=== PATIENT | female | born 1970 | race Caucasian/White ===

== ENCOUNTER 2016-08-28 11:41 | Emergency (ER) | payer BC, OTHER ==
[~2016-08-28 11:41] MED LIST: Albuterol Inhaler INH; BENA25CA2 PO; EXCETAB80 PO; FLUT11IN INH; LEVA500T PO; MOTR200T44 PO; MUCI600T34 PO; ROBISYP5 PO; SUDA30TA PO; TYLE325T5 PO; ZANT300T PO; [UNRECOGNIZED DRUG - OTHER] PO; [UNRECOGNIZED DRUG - REMARK] PO
[2016-08-28] MEDS ORDERED: predniSONE 20 MG TAB As Ordered ONE (12:32)
[2016-08-28] MEDS ORDERED: NAPROXEN 250 MG TAB As Ordered ONE (12:32)
--- NOTE | 2016-08-28 13:52 | EDDOCDS ---
Physician Documentation [facility] Name: Saumya Kim Age: 46 yrs Sex: Female : 1970 Arrival Date: 08/28/2016 Time: 11:41 Bed PR Private MD: Wilder Clark H. Disposition: 08/28/16 13:23 Discharged to Home/Self Care. 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 - Condition is Stable. - Discharge Instructions: Degenerative Disk Disease, Soft Tissue Injury of the Neck, [id number]. - Prescriptions for Mobic 7.5 mg Oral Tablet - take 1 tablet by ORAL route once daily take with food; 20 tablet. Percocet 5- 325 mg Oral Tablet - take 1 tablet by ORAL route every 6 hours As needed MDD: 4 tabs; 10 tablet. Zanaflex 4 mg Oral Tablet - take 1 tablet by ORAL route At bedtime As needed Will cause drowsiness, do not take while driving/operating heavy machinery.; 20 tablet. - Medication Reconciliation, Local Pharmacy Hours form. - Follow up: [facility]; When: Call to arrange an appointment; Reason: Further diagnostic work-up, Recheck today's complaints, Continuance of care. Follow up: Wilder Clark; When: 1 - 2 days; Reason: Recheck today's complaints, Continuance of care. Follow up: Emergency Department; Reason: Worsening of conditions. - Problem is new. - Symptoms have improved. Historical: - Allergies: No known drug Allergies; - Home Meds: 1. none - PMHx: none; - PSHx: none; - Social history: Smoking status: Patient states was never smoker of tobacco. No barriers to communication noted, The patient speaks fluent Kinyarwanda, Speaks appropriately for age. - : The pt / caregiver states he / she is not on anticoagulants. Home medication list is obtained from the patient. - Exposure Risk Screening:: None identified. 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 0 in. (152.40 cm) (R); 13:48 BP 145 / 85; Pulse 78; Resp 20; Temp 97.8(O); Pulse Ox 98% on R/A; dwg 11:44 Body Mass Index 39.06 (90.72 kg, 152.40 cm) dd6 MDM: 12:28 predniSONE 60 mg PO once; administer with food or milk ordered. ef1 12:28 Naproxen 500 mg PO once; administer with food or milk ordered. ef1 12:28 Ice Pack ordered. ef1 12:28 CT Spine,Cervical W/o Contrast Ordered. EDMS 13:14 [facility] Payment Agreement was scanned into [employer] and attached to record. jp5 13:15 Financial registration complete. jp5 Administered Medications: 12:34 Drug: predniSONE 60 mg [prednisone 20 mg tablet (3 tabs)] Route: PO; ms18 13:50 Follow up: Response: Pain is decreased dwg 12:34 Drug: Naproxen 500 mg [naproxen 250 mg tablet (2 tabs)] Route: PO; ms18 13:49 Follow up: Response: Pain is decreased dwg Signatures: Dispatcher MedHost EDMS Andrea Hall RN RN dwg Bryanna Ho, PA-C PA-C ef1 Nichole Boone RN RN hs1 Muna Villafuerte jp5 Corinne Reich RN ms18 The chart was reviewed and I authenticate all verbal orders and agree with the evaluation and treatment provided.Attachments: 13:14 [facility] Payment Agreement jp5 MTDD
--- NOTE | 2016-08-28 13:52 | EDDOCDS ---
Nurse's Notes [facility] Name: Saumya Kim Age: 46 yrs Sex: Female : 1970 Arrival Date: 08/28/2016 Time: 11:41 Bed PR2 / Private MD: Wilder Clark H. 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 Helped another worker pull down on a rope pulling door open. Patient reported that she had increased neck pain one hour after event and increasing pains since then. Patient states difficulty turning neck now. Risk Factors No acute neurological deficit is noted. Adult Sepsis Screening: The patient does not have new or worsening altered mentation. Patient's respiratory rate is less than 22. Systolic blood pressure is greater than 100. Patient has a qSOFA score of 0- Negative Sepsis Screen. Suicide/Homicide risk assessment- the patient denies having any suicidal and/or homicidal ideations and does not present with any other emotional, behavioral or mental health complaints. 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 Transition of care: patient was not received from another setting of care. 11:49 Acuity: JANELLE Level 4 hs1 11:49 Method Of Arrival: Walkin/Carried/Asstd hs1 Triage Assessment: 11:51 General: Appears in no apparent distress, Behavior is appropriate for age, cooperative. hs1 Pain: Location: back of neck Pain currently is 6 out of 10 on a pain scale. Quality of pain is described as burning. Pt Declines HIV testing. Musculoskeletal: Reports pain in back of neck. 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 none - PMHx: none; - PSHx: none; - Social history: Smoking status: Patient states was never smoker of tobacco. No barriers to communication noted, The patient speaks fluent Yoruba, Speaks appropriately for age. - : The pt / caregiver states he / she is not on anticoagulants. Home medication list is obtained from the patient. - Exposure Risk Screening:: None identified. Screenin:53 Screening information is obtained from the patient. Fall risk: No risks identified. hs1 Assistance ADL's: requires no assistance with activities of daily living. Abuse/DV Screen: The patient / caregiver reports he/she is: not in a situation that causes fear, pain or injury. Nutritional screening: No deficits noted. Advance Directives: There is no active DNR order. home support is adequate. Assessment: 13:47 General: Appears in no apparent distress, Behavior is cooperative, pleasant. Pain: dwg Location: base of the skull. Neurological: Level of Consciousness is awake, alert, Oriented to person, place, time. Neurological: Cna are equal bilaterally Moves all extremities. Weakness Gait is steady, Speech is normal, Facial symmetry appears normal. Respiratory: Airway is patent Respiratory effort is even, unlabored, Respiratory pattern is regular, symmetrical. Vital Signs: 11:44 BP 152 / 77; Pulse 85; Resp 18 S; Temp 97.0(T); Pulse Ox 100% on R/A; Weight 90.72 kg dd6 (R); Height 5 ft. 0 in. (152.40 cm) (R); 13:48 BP 145 / 85; Pulse 78; Resp 20; Temp 97.8(O); Pulse Ox 98% on R/A; dwg 11:44 Body Mass Index 39.06 (90.72 kg, 152.40 cm) dd6 Vitals: 11:44 Log In Time: August 28, 2016 at 11:42. dd6 ED Course: 11:43 Patient visited by Guido Viera PCA. dd6 11:43 Wilder Clark is Private Physician. dd6 11:43 Patient moved to Waiting dd6 11:44 Patient moved to Pre RCE dd6 11:51 Triage Initiated hs1 12:19 Bryanna Ho PA-C is PHCP. ef1 12:19 Rufina Bañuelos MD is Attending Physician. ef1 12:19 Patient visited by Bryanna Ho PA-C. ef1 12:19 Patient moved to Triage 2 ms18 12:34 Patient moved to TR4 ms18 13:00 Patient visited by Bryanna Ho PA-C. ef1 13:14 [facility] Payment Agreement was scanned into [employer] and attached to record. jp5 13:21 Patient visited by Bryanna Ho PA-C. ef1 13:23 Orthopaedics, [facility] is Referral Physician. ef1 13:23 Wilder Clark is Referral Physician. ef1 13:27 Patient moved to ms18 13:49 Patient visited by Andrea Hall, RN. dwg Administered Medications: 12:34 Drug: predniSONE 60 mg [prednisone 20 mg tablet (3 tabs)] Route: PO; ms18 13:50 Follow up: Response: Pain is decreased dwg 12:34 Drug: Naproxen 500 mg [naproxen 250 mg tablet (2 tabs)] Route: PO; ms18 13:49 Follow up: Response: Pain is decreased dwg Order Results: There are currently no results for this order. Outcome: 13:23 Discharge ordered by Provider. ef1 13:51 Patient left the ED. dwg Signatures: Andrea Hall, RN RN dwg Guido Viera, REGULATOR OPERATOR REGULATOR OPERATOR dd6 Bryanna Ho PA-C PA-C ef1 Nichole Boone RN RN hs1 Corinne Reich RN RN ms18 Muna Villafuerte 5 MTDD
--- NOTE | 2016-08-28 16:27 | REP ---
CT CERVICAL SPINE WITHOUT CONTRAST: HISTORY: Trauma. There is no acute fracture or subluxation. Disc bulges with associated osteophyte formation are present at the C5-6 and C6-7 levels. There is minimal narrowing of the spinal canal. Uncinate process hypertrophy is present at the C5-6 and C6-7 levels. This produces minimal narrowing of the neural foramina. The C5-6 and C6-7 intervertebral discs are decreased in height consistent with disc degeneration. IMPRESSION: 1. There is no acute fracture or subluxation. 2. There is cervical spondylosis at the C5-6 and C6-7 levels. Signed by Ravindra Gallo MD 08/28/2016 04:29 P
--- NOTE | 2016-08-30 14:52 | EDDOCDS ---
Physician Documentation [facility] Name: Saumya Kim Age: 46 yrs Sex: Female : 1970 Arrival Date: 08/28/2016 Time: 11:41 Bed PR Private MD: Wilder Clark H. Disposition: 08/28/16 13:23 Discharged to Home/Self Care. 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 - Condition is Stable. - Discharge Instructions: Degenerative Disk Disease, Soft Tissue Injury of the Neck, [id number]. - Prescriptions for Mobic 7.5 mg Oral Tablet - take 1 tablet by ORAL route once daily take with food; 20 tablet. Percocet 5- 325 mg Oral Tablet - take 1 tablet by ORAL route every 6 hours As needed MDD: 4 tabs; 10 tablet. Zanaflex 4 mg Oral Tablet - take 1 tablet by ORAL route At bedtime As needed Will cause drowsiness, do not take while driving/operating heavy machinery.; 20 tablet. - Medication Reconciliation, Local Pharmacy Hours form. - Follow up: [facility]; When: Call to arrange an appointment; Reason: Further diagnostic work-up, Recheck today's complaints, Continuance of care. Follow up: Wilder Clark; When: 1 - 2 days; Reason: Recheck today's complaints, Continuance of care. Follow up: Emergency Department; Reason: Worsening of conditions. - Problem is new. - Symptoms have improved. Historical: - Allergies: No known drug Allergies; - Home Meds: 1. none - PMHx: none; - PSHx: none; - Social history: Smoking status: Patient states was never smoker of tobacco. No barriers to communication noted, The patient speaks fluent Malawian, Speaks appropriately for age. - : The pt / caregiver states he / she is not on anticoagulants. Home medication list is obtained from the patient. - Exposure Risk Screening:: None identified. 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 0 in. (152.40 cm) (R); 13:48 BP 145 / 85; Pulse 78; Resp 20; Temp 97.8(O); Pulse Ox 98% on R/A; dwg 11:44 Body Mass Index 39.06 (90.72 kg, 152.40 cm) dd6 MDM: 12:28 predniSONE 60 mg PO once; administer with food or milk ordered. ef1 12:28 Naproxen 500 mg PO once; administer with food or milk ordered. ef1 12:28 Ice Pack ordered. ef1 12:28 CT Spine,Cervical W/o Contrast Ordered. EDME 13:14 [facility] Payment Agreement was scanned into [employer] and attached to record. jp5 13:15 Financial registration complete. jp5 14:50 T-Sheet-- Draft Copy was scanned into [employer] and attached to record. gb 14:50 Radiology Report was scanned into [employer] and attached to record. gb Administered Medications: 12:34 Drug: predniSONE 60 mg [prednisone 20 mg tablet (3 tabs)] Route: PO; ms18 13:50 Follow up: Response: Pain is decreased dwg 12:34 Drug: Naproxen 500 mg [naproxen 250 mg tablet (2 tabs)] Route: PO; ms18 13:49 Follow up: Response: Pain is decreased dw Signatures: Dispatcher MedHost EDAndrea Vizcarra, RN RN dwg Zuly Flanagan, Reg Reg gb Bryanna Ho, PA-C PA-C ef1 Nichole Boone RN RN 1 Muna Villafuerte jp5 Corinne Reich RN ms18 The chart was reviewed and I authenticate all verbal orders and agree with the evaluation and treatment provided.Attachments: 13:14 [facility] Payment Agreement jp5 14:50 T-Sheet-- Draft Copy gb Chart Complete MTDD
--- NOTE | 2016-08-30 14:52 | EDDOCDS ---
Physician Documentation [facility] Name: Saumya Kim Age: 46 yrs Sex: Female : 1970 Arrival Date: 08/28/2016 Time: 11:41 Bed PR Private MD: Wilder Clark H. Disposition: 08/28/16 13:23 Discharged to Home/Self Care. 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 - Condition is Stable. - Discharge Instructions: Degenerative Disk Disease, Soft Tissue Injury of the Neck, [id number]. - Prescriptions for Mobic 7.5 mg Oral Tablet - take 1 tablet by ORAL route once daily take with food; 20 tablet. Percocet 5- 325 mg Oral Tablet - take 1 tablet by ORAL route every 6 hours As needed MDD: 4 tabs; 10 tablet. Zanaflex 4 mg Oral Tablet - take 1 tablet by ORAL route At bedtime As needed Will cause drowsiness, do not take while driving/operating heavy machinery.; 20 tablet. - Medication Reconciliation, Local Pharmacy Hours form. - Follow up: [facility]; When: Call to arrange an appointment; Reason: Further diagnostic work-up, Recheck today's complaints, Continuance of care. Follow up: Widler Clark; When: 1 - 2 days; Reason: Recheck today's complaints, Continuance of care. Follow up: Emergency Department; Reason: Worsening of conditions. - Problem is new. - Symptoms have improved. Historical: - Allergies: No known drug Allergies; - Home Meds: 1. none - PMHx: none; - PSHx: none; - Social history: Smoking status: Patient states was never smoker of tobacco. No barriers to communication noted, The patient speaks fluent Canadian, Speaks appropriately for age. - : The pt / caregiver states he / she is not on anticoagulants. Home medication list is obtained from the patient. - Exposure Risk Screening:: None identified. 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 0 in. (152.40 cm) (R); 13:48 BP 145 / 85; Pulse 78; Resp 20; Temp 97.8(O); Pulse Ox 98% on R/A; dwg 11:44 Body Mass Index 39.06 (90.72 kg, 152.40 cm) dd6 MDM: 12:28 predniSONE 60 mg PO once; administer with food or milk ordered. ef1 12:28 Naproxen 500 mg PO once; administer with food or milk ordered. ef1 12:28 Ice Pack ordered. ef1 12:28 CT Spine,Cervical W/o Contrast Ordered. EDNV 13:14 [facility] Payment Agreement was scanned into [employer] and attached to record. jp5 13:15 Financial registration complete. jp5 14:50 T-Sheet-- Draft Copy was scanned into [employer] and attached to record. gb 14:50 Radiology Report was scanned into [employer] and attached to record. gb Administered Medications: 12:34 Drug: predniSONE 60 mg [prednisone 20 mg tablet (3 tabs)] Route: PO; ms18 13:50 Follow up: Response: Pain is decreased dwg 12:34 Drug: Naproxen 500 mg [naproxen 250 mg tablet (2 tabs)] Route: PO; ms18 13:49 Follow up: Response: Pain is decreased dw Signatures: Dispatcher MedHost EDAndrea Vizcarra, RN RN dwg Zuly Flanagan, Reg Reg gb Bryanna Ho, PA-C PA-C ef1 Nichole Boone RN RN 1 Muna Villafuerte jp5 Corinne Reich RN ms18 The chart was reviewed and I authenticate all verbal orders and agree with the evaluation and treatment provided.Attachments: 13:14 [facility] Payment Agreement jp5 14:50 T-Sheet-- Draft Copy gb Chart Complete MTDD
--- NOTE | 2016-08-30 14:52 | EDDOCDS ---
Nurse's Notes [facility] Name: Saumya Kim Age: 46 yrs Sex: Female : 1970 Arrival Date: 08/28/2016 Time: 11:41 Bed PR2 / Private MD: Wilder Clark H. 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 Helped another worker pull down on a rope pulling door open. Patient reported that she had increased neck pain one hour after event and increasing pains since then. Patient states difficulty turning neck now. Risk Factors No acute neurological deficit is noted. Adult Sepsis Screening: The patient does not have new or worsening altered mentation. Patient's respiratory rate is less than 22. Systolic blood pressure is greater than 100. Patient has a qSOFA score of 0- Negative Sepsis Screen. Suicide/Homicide risk assessment- the patient denies having any suicidal and/or homicidal ideations and does not present with any other emotional, behavioral or mental health complaints. 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 Transition of care: patient was not received from another setting of care. 11:49 Acuity: JANELLE Level 4 hs1 11:49 Method Of Arrival: Walkin/Carried/Asstd hs1 Triage Assessment: 11:51 General: Appears in no apparent distress, Behavior is appropriate for age, cooperative. hs1 Pain: Location: back of neck Pain currently is 6 out of 10 on a pain scale. Quality of pain is described as burning. Pt Declines HIV testing. Musculoskeletal: Reports pain in back of neck. 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 none - PMHx: none; - PSHx: none; - Social history: Smoking status: Patient states was never smoker of tobacco. No barriers to communication noted, The patient speaks fluent Italian, Speaks appropriately for age. - : The pt / caregiver states he / she is not on anticoagulants. Home medication list is obtained from the patient. - Exposure Risk Screening:: None identified. Screenin:53 Screening information is obtained from the patient. Fall risk: No risks identified. hs1 Assistance ADL's: requires no assistance with activities of daily living. Abuse/DV Screen: The patient / caregiver reports he/she is: not in a situation that causes fear, pain or injury. Nutritional screening: No deficits noted. Advance Directives: There is no active DNR order. home support is adequate. Assessment: 13:47 General: Appears in no apparent distress, Behavior is cooperative, pleasant. Pain: dwg Location: base of the skull. Neurological: Level of Consciousness is awake, alert, Oriented to person, place, time. Neurological: Abstract Clerk are equal bilaterally Moves all extremities. Weakness Gait is steady, Speech is normal, Facial symmetry appears normal. Respiratory: Airway is patent Respiratory effort is even, unlabored, Respiratory pattern is regular, symmetrical. Vital Signs: 11:44 BP 152 / 77; Pulse 85; Resp 18 S; Temp 97.0(T); Pulse Ox 100% on R/A; Weight 90.72 kg dd6 (R); Height 5 ft. 0 in. (152.40 cm) (R); 13:48 BP 145 / 85; Pulse 78; Resp 20; Temp 97.8(O); Pulse Ox 98% on R/A; dwg 11:44 Body Mass Index 39.06 (90.72 kg, 152.40 cm) dd6 Vitals: 11:44 Log In Time: August 28, 2016 at 11:42. dd6 ED Course: 11:43 Patient visited by Guido Viera PCA. dd6 11:43 Wilder Clark is Private Physician. dd6 11:43 Patient moved to Waiting dd6 11:44 Patient moved to Pre RCE dd6 11:51 Triage Initiated hs1 12:19 Bryanna Ho PA-C is PHCP. ef1 12:19 Rufina Bañuelos MD is Attending Physician. ef1 12:19 Patient visited by Bryanna Ho PA-C. ef1 12:19 Patient moved to Triage 2 ms18 12:34 Patient moved to TR4 ms18 13:00 Patient visited by Bryanna Ho PA-C. ef1 13:14 [facility] Payment Agreement was scanned into [employer] and attached to record. jp5 13:21 Patient visited by Bryanna Ho PA-C. ef1 13:[facility]. ef1 13:23 Wilder Clark is Referral Physician. ef1 13:27 Patient moved to PR ms18 13:49 Patient visited by Andrae Hall RN. dwg 14:50 T-Sheet-- Draft Copy was scanned into [employer] and attached to record. gb 14:50 Radiology Report was scanned into [employer] and attached to record. gb 17:15 CT Spine,Cervical W/o Contrast Returned. EDMS Administered Medications: 12:34 Drug: predniSONE 60 mg [prednisone 20 mg tablet (3 tabs)] Route: PO; ms18 13:50 Follow up: Response: Pain is decreased dwg 12:34 Drug: Naproxen 500 mg [naproxen 250 mg tablet (2 tabs)] Route: PO; ms18 13:49 Follow up: Response: Pain is decreased dwg Order Results: Radiology Order: CT Spine,Cervical W/o Contrast Test: CT Spine,Cervical W/o Contrast REASON FOR EXAMINATION: Trauma; CT CERVICAL SPINE WITHOUT CONTRAST:; ; HISTORY: Trauma.; ; There is no acute fracture or subluxation. Disc bulges with associated osteophyte; formation are present at the C5-6 and C6-7 levels. There is minimal narrowing of; the spinal canal. Uncinate process hypertrophy is present at the C5-6 and C6-7; levels. This produces minimal narrowing of the neural foramina. The C5-6 and C6-7; intervertebral discs are decreased in height consistent with disc degeneration.; ; IMPRESSION:; ; 1. There is no acute fracture or subluxation.; ; 2. There is cervical spondylosis at the C5-6 and C6-7 levels.; ; ; Signed by; Ravindra Gallo MD 08/28/2016 04:29 P; Outcome: 13:23 Discharge ordered by Provider. ef1 13:51 Patient left the ED. dwg Signatures: Dispatcher [employer] EDMS Andrea Hall, RN RN dwg Zuly Flanagan, Reg Reg gb Guido Viera, SCOUT SNIPER SCOUT SNIPER dd6 Bryanna Ho PA-C PA-C ef1 Nichole Boone RN RN hs1 Corinne Reich RN RN ms18 Muna Villafuerte jp5 Chart Complete MTDD
== END 2016-08-28 13:51 | disposition home or self-care (01) ==
LOC: M ED 11:41
DX: M50.30 Other cervical disc degeneration, unspecified cervical region (principal)

== ENCOUNTER → 2017-02-28 | Outpatient (CLI) | payer BC ==
[~2017-02-28] MED LIST changes: +AMOX500T2 PO; +FLUC10TA PO; +LEVA1TAB2 PO; -LEVA500T PO; -MUCI600T34 PO; +MUCI600T37 PO; +NORCOTAB PO
[2017-02-28 14:58] LABS: ALBUMIN 3.6 GM/DL (3.2-5.2); ALBUMIN/GLOBULIN RATIO 1.03 (1.00-1.93); ALKALINE PHOSPHATASE 79 U/L (45-117); ALT/SGPT 24 U/L (12-78); ANION GAP 6 MEQ/L (8-16); AST/SGOT 17 U/L (15-37); BILIRUBIN,TOTAL 0.5 MG/DL (0.2-1.0); BLOOD UREA NITROGEN 12 MG/DL (7-18); CALCIUM LEVEL 8.8 MG/DL (8.5-10.1); CARBON DIOXIDE LEVEL 27 MEQ/L (21-32); CHLORIDE LEVEL 106 MEQ/L (98-107); CREATININE FOR GFR 0.63 MG/DL (0.55-1.02); GLOMERULAR FILTRATION RATE > 60.0 (>58); GLUCOSE, FASTING 100 MG/DL (70-105); POTASSIUM SERUM 4.3 MEQ/L (3.5-5.1); SODIUM LEVEL 139 MEQ/L (136-145); TOTAL PROTEIN 7.1 GM/DL (6.4-8.2)
--- NOTE | 2017-03-01 06:33 | REP ---
Clinical: Left lower quadrant pelvic pain . Technique: Transabdominal pelvic ultrasound followed by transvaginal examination for better evaluation of the endometrium and adnexa with color Doppler evaluation of the ovaries. Findings: Bladder is unremarkable and measures 4.0 x 3.3 x 2.0 cm . Normal anteverted uterus measures 9.7 x 4.0 x 4.3 cm . The endometrial complex measures 3.9 mm thickness. 12 mm Nabothian cyst in the lower uterine segment noted. Bilateral ovaries are normal in appearance and vascularity without evidence for torsion. Right ovary measures 2.0 x 2.3 x 2.2 cm ; R I = 0.52 . Left ovary measures 2.0 x 1.3 x 2.5 cm ; R I = 0.43 . No pelvic fluid or adnexal mass lesion . Impression: 1. 12 mm Nabothian cyst. Otherwise normal pelvic ultrasound. No torsion. Signed by Mitchell Marques MD 03/01/2017 04:55 A
== END ==
LOC: M RAD 13:15
PROVIDERS: ATTEND Nurse Practitioner Women's Health
DX: E66.9 Obesity, unspecified (principal); Z68.39 Body mass index [BMI] 39.0-39.9, adult; R10.32 Left lower quadrant pain

== ENCOUNTER → 2017-06-11 | Outpatient (CLI) | payer BC ==
--- NOTE | 2017-06-11 15:46 | REP ---
ABDOMEN: Two KUB films of the abdomen and pelvis are performed. There is no evidence of bowel obstruction. No dilated small bowel loops are seen. There appear to be a few phleboliths in the pelvis. There are mild degenerative changes of the spine and hips. IMPRESSION: Unremarkable KUB. Signed by Andrea Aviles MD 06/12/2017 04:30 P
[2017-06-11 18:25] LABS: MEAN CORPUSCULAR HEMOGLOBIN 32.8 pg (27.0-33.0); MEAN CORPUSCULAR HGB CONC 33.3 g/dl (32.0-36.5); MEAN CORPUSCULAR VOLUME 98.4 fl (80.0-96.0); WHITE BLOOD COUNT 14.1 10^3/uL (4.0-10.0)
[2017-06-11 18:27] LABS: CBCMD ORDERED? YES (YES)
[2017-06-11 18:37] LABS: ALBUMIN 3.9 GM/DL (3.2-5.2); ALBUMIN/GLOBULIN RATIO 1.08 (1.00-1.93); ALKALINE PHOSPHATASE 106 U/L (45-117); ALT/SGPT 29 U/L (12-78); ANION GAP 8 MEQ/L (8-16); AST/SGOT 10 U/L (15-37); BILIRUBIN,TOTAL 0.6 MG/DL (0.2-1.0); BLOOD UREA NITROGEN 12 MG/DL (7-18); CARBON DIOXIDE LEVEL 31 MEQ/L (21-32); CHLORIDE LEVEL 100 MEQ/L (98-107); CREATININE FOR GFR 0.74 MG/DL (0.55-1.02); GLOMERULAR FILTRATION RATE > 60.0 (>58); GLUCOSE, FASTING 99 MG/DL (70-105); POTASSIUM SERUM 3.8 MEQ/L (3.5-5.1); SODIUM LEVEL 139 MEQ/L (136-145); TOTAL PROTEIN 7.5 GM/DL (6.4-8.2)
== END ==
LOC: M WUC 13:52
PROVIDERS: ATTEND Physician Assistant
DX: R10.84 Generalized abdominal pain (principal)

== ENCOUNTER → 2017-06-11 | Outpatient (CLI) | payer BC ==
[~2017-06-11] MED LIST changes: +GASTROGRAFIN SOLUTION 30ML (Q9963) As Ordered ONE; +ISOVUE-370 76% 100ML VIAL (Q9967) As Ordered ONE
--- NOTE | 2017-06-11 17:53 | REP ---
CT ABDOMEN PELVIS WITH IV CONTRAST: 06/11/2017. Clinical history: Generalized abdominal pain. Comparison: X-ray 06/11/2017. Technique: Oral Gastrografin mixture 10 ml as into 190 ml flavored water for two doses per our bowel contrast protocol. Bolus of 100 ml as Isovue 370 given scanning through the abdomen and pelvis. Coronal and sagittal reconstructions provided. Findings: CT abdomen: Lung bases are clear. Heart not enlarged as no pericardial thickening or effusion. There are not enlarged and there is no focal hepatic mass, biliary dilatation nor adjacent ascites. Gallbladder shows no calcified stone or mass. Pancreas, spleen, adrenal glands and kidneys were all normal. No hiatal hernia. Stomach filled with some retained oral contrast contrast seen throughout the small bowel loops into the colon to the level of the distal transverse segment. Small bowel loops contrast or fluid-filled but not abnormally dilated. No anisha colonic inflammatory changes in the right transverse and left colon, flexures. No mesenteric edema. The aorta is without aneurysm and no periaortic or retroperitoneal pathologic sized lymphadenopathy. Lung window review for all CT slices abdomen pelvis show no perforation, abscess or free air. Bone windows show lumbar and lower thoracic spine, posterior elements and visualized ribs intact. CT pelvis bony hips with minor degenerative change. The pelvis, sacrum, SI joints, symphysis pubis and lumbosacral junction with minor degenerative change and no destructive lesion or fracture. Kidneys show no hydronephrosis, hydroureter, renal or ureteral stone. Bladder only partially filled without wall thickening, stone or mass. Uterus anteverted, not enlarged. No adnexal mass. There are inflammatory changes about the cecum and appendix. The appendix is dilated. Diameters up to 12 mm do not see an appendicolith. There is no perforation or abscess. Pelvic lymphadenopathy or ascites. No ventral or inguinal hernia nor pathologic sized inguinal adenopathy. Impression: 1. There is a dilatation of the appendix with inflammatory changes surrounding it and the appendix up to 13 mm. This is consistent with early appendicitis. I do not see perforation or abscess at this time. No appendicolith. 2. Small bowel loops and colon without any acute findings otherwise. There is no perforation, free air or other significant finding. Solid organs upper abdomen, gallbladder and stomach all intact. Signed by Yonis Colon MD 06/11/2017 05:44 P
== END ==
LOC: M RAD 15:12
PROVIDERS: ATTEND Physician Assistant
DX: R10.84 Generalized abdominal pain (principal)
CPT/HCPCS: 74177; Q9963; Q9967

== ENCOUNTER → 2017-09-20 | Outpatient (REF) | payer BC | LOC: M SFHCPLAZ 10:09 | DX: Z00.00 Encounter for general adult medical examination without abnormal findings (principal); R53.83 Other fatigue; Z13.220 Encounter for screening for lipoid disorders; Z53.9 Procedure and treatment not carried out, unspecified reason ==

== ENCOUNTER → 2017-10-04 | Outpatient (REF) | payer BC ==
[2017-10-04 12:15] LABS: BASO # 0.1 10^3/uL (0.0-0.2); BASO % 0.8 % (0.0-1.0); EOS # 0.2 10^3/uL (0.0-0.50); EOS % 3.6 % (0.0-3.0); HEMATOCRIT 43.1 % (36.0-47.0); HEMOGLOBIN 14.4 g/dl (12.0-16.0); IMMATURE GRANULOCYTE % 0.2 % (0-3.0); LYMPH # 2.5 10^3/uL (1.5-4.5); LYMPH % 38.8 % (24.0-44.0); MEAN CORPUSCULAR HEMOGLOBIN 32.7 pg (27.0-33.0); MEAN CORPUSCULAR HGB CONC 33.4 g/dl (32.0-36.5); MEAN CORPUSCULAR VOLUME 97.7 fl (80.0-96.0); MONO # 0.6 10^3/uL (0.0-0.8); MONO % 9.7 % (0.0-5.0); NEUTROPHILS % 46.9 % (36.0-66.0); PLATELET COUNT, AUTOMATED 204 10^3/uL (150-450); RED BLOOD COUNT 4.41 10^6/uL (4.00-5.40); RED CELL DISTRIBUTION WIDTH 12.1 % (11.5-14.5); WHITE BLOOD COUNT 6.3 10^3/uL (4.0-10.0)
[2017-10-04 12:38] LABS: ANION GAP 8 MEQ/L (8-16); BLOOD UREA NITROGEN 13 MG/DL (7-18); CALCIUM LEVEL 8.6 MG/DL (8.5-10.1); CARBON DIOXIDE LEVEL 30 MEQ/L (21-32); CHLORIDE LEVEL 106 MEQ/L (98-107); CHOLESTEROL LEVEL 255 MG/DL (<200); CHOLESTEROL RISK RATIO 3.187 (<5); CREATININE FOR GFR 0.65 MG/DL (0.55-1.30); FREE T4 1.01 NG/DL (0.76-1.46); GLOMERULAR FILTRATION RATE > 60.0 (>58); GLUCOSE, FASTING 104 MG/DL (70-100); HDL CHOLESTEROL 80 MG/DL (>40); LDL CHOLESTEROL 138.6 MG/DL (<100); NON-HDL-C 175 MG/DL; POTASSIUM SERUM 4.1 MEQ/L (3.5-5.1); SODIUM LEVEL 144 MEQ/L (136-145); TRIGLYCERIDES LEVEL 182 MG/DL (<150)
== END ==
LOC: M SFHCPLAZ 07:46
DX: Z00.00 Encounter for general adult medical examination without abnormal findings (principal); R53.83 Other fatigue; Z13.220 Encounter for screening for lipoid disorders
CPT/HCPCS: 84443

== ENCOUNTER 2017-11-01 06:46 | Day surgery (SDC) | payer BC ==
[2017-11-01] MEDS ORDERED: LIDOCAINE 1% MDV 20ML VIAL SQ (07:00)
[2017-11-01 07:49] LABS: CONTROL LINE UCG INT CTR LINE PRESENT; URINE PREG TEST NEGATIVE (NEGATIVE)
[2017-11-01] MEDS: LR 1,000 ML IV (07:50)
[2017-11-01] MEDS ORDERED: MIDAZOLAM INJ 2 MG/2 ML VIAL (J2250) As Ordered (07:54)
[2017-11-01] MEDS ORDERED: fentaNYL 100 MCG/2 ML INJECTION (J3010) As Ordered ×2 (07:54→09:06)
[2017-11-01] MEDS ORDERED: ROCURONIUM BROMIDE 50 MG/5 ML VIAL As Ordered (07:56)
[2017-11-01] MEDS: CEFAZOLIN SOD 1 GM in APPROPRIATE DILUENT 1 EA IV (08:48)
[2017-11-01] MEDS ORDERED: LIDOCAINE 2% INJ 100 MG/5 ML SDV (FOR ANES.) As Ordered (08:59)
[2017-11-01] MEDS ORDERED: KETOROLAC 60 MG/2 ML VIAL (J1885) As Ordered (08:59)
[2017-11-01] MEDS ORDERED: dexameTHASONE 4 MG/ML 1ML VIAL (J1100) As Ordered ×2 (08:59)
[2017-11-01] MEDS ORDERED: ONDANSETRON 4MG/2ML VIAL (J2405) As Ordered (08:59)
[2017-11-01] MEDS ORDERED: PROPOFOL 200 MG/20 ML VIAL As Ordered (08:59)
[2017-11-01] MEDS ORDERED: NEOSTIGMINE 10 MG/10 ML VIAL (J2710) As Ordered (09:15)
[2017-11-01] MEDS ORDERED: GLYCOPYRROLATE INJ 0.2 MG/ML 2 ML VIAL As Ordered (09:15)
[2017-11-01] MEDS: LIDOCAINE W/EPINEPHRINE 1% 20ML VIAL As Ordered (09:27)
[2017-11-01] MEDS: BUPIVACAINE HCL 0.25% 10 ML VIAL As Ordered (09:28)
[2017-11-01] MEDS ORDERED: ONDANSETRON 4MG/2ML VIAL (J2405) IV ×2 (09:45→10:00)
[2017-11-01] MEDS ORDERED: LR 1,000 ML IV ×2 (09:45→10:00)
[2017-11-01] MEDS ORDERED: fentaNYL 100 MCG/2 ML INJECTION (J3010) IV (09:45)
[2017-11-01] MEDS ORDERED: NORCO, ANEXSIA 5/325MG TABLET (HYDROcodone/ACETAMINOPHEN) PO (10:00)
[2017-11-01] MEDS: PERCOCET 5MG/325MG TAB PO ×2 (10:00→12:24)
[2017-11-01] MEDS ORDERED: PERCOCET 5MG/325MG TAB As Ordered (12:23)
[2017-11-01] MEDS ORDERED: KETOROLAC 30 MG/ML VIAL (J1885) IV (15:00)
== END 2017-11-01 13:25 | disposition home or self-care (01) ==
LOC: M SDC 06:46
DX: K43.2 Incisional hernia without obstruction or gangrene (principal)
CPT/HCPCS: 49560

== ENCOUNTER → 2017-11-12 | Outpatient (CLI) | payer BC | LOC: M RAD 07:39 | DX: R10.11 Right upper quadrant pain (principal) | CPT/HCPCS: 76705 ==

== ENCOUNTER → 2018-01-29 | Outpatient (CLI) | payer BC | LOC: M SLEEP 20:06 | DX: G47.33 Obstructive sleep apnea (adult) (pediatric) (principal) | CPT/HCPCS: 95810 ==

== ENCOUNTER → 2018-02-03 | Outpatient (CLI) | payer BC | LOC: M RAD 12:48 | DX: R06.02 Shortness of breath (principal) | CPT/HCPCS: 71046 ==

== ENCOUNTER → 2018-02-26 | Outpatient (CLI) | payer BC | LOC: M SLEEP 19:42 | DX: G47.33 Obstructive sleep apnea (adult) (pediatric) (principal) | CPT/HCPCS: 95811 ==

== ENCOUNTER 2018-05-27 09:16 | Day surgery (SDC) | payer BC ==
[~2018-05-27 09:16] MED LIST changes: -AMOX500T2 PO; -Albuterol Inhaler INH; -BENA25CA2 PO; -EXCETAB80 PO; -FLUC10TA PO; -FLUT11IN INH; -GASTROGRAFIN SOLUTION 30ML (Q9963) As Ordered ONE; -ISOVUE-370 76% 100ML VIAL (Q9967) As Ordered ONE; -LEVA1TAB2 PO; -MOTR200T44 PO; -MUCI600T37 PO; -NORCOTAB PO; +NS 1,000 ML IV; -ROBISYP5 PO; -SUDA30TA PO; -TYLE325T5 PO; -ZANT300T PO; -[UNRECOGNIZED DRUG - OTHER] PO; -[UNRECOGNIZED DRUG - REMARK] PO
[2018-05-27] MEDS ORDERED: PROPOFOL 200 MG/20 ML VIAL As Ordered ×2 (10:53→11:00)
[2018-05-27] MEDS ORDERED: LIDOCAINE 2% INJ 100 MG/5 ML SDV (FOR ANES.) As Ordered ×2 (10:53→11:00)
== END 2018-05-27 11:57 | disposition home or self-care (01) ==
LOC: M OPP 09:16
DX: R19.7 Diarrhea, unspecified (principal); K64.8 Other hemorrhoids; G47.30 Sleep apnea, unspecified; K21.9 Gastro-esophageal reflux disease without esophagitis; Z80.3 Family history of malignant neoplasm of breast; Z83.3 Family history of diabetes mellitus; Z83.49 Family history of other endocrine, nutritional and metabolic diseases
CPT/HCPCS: 45378

== ENCOUNTER → 2018-09-24 | Outpatient (CLI) | payer BC ==
[~2018-09-24] MED LIST changes: +AMOX500T2 PO; +Albuterol Inhaler INH; +BENA25CA2 PO; +EXCETAB80 PO; +FLUC10TA PO; +FLUT11IN INH; +LEVA1TAB2 PO; +MOTR200T44 PO; +MUCI600T37 PO; +NO MEDICATIONS; +NORCOTAB PO; -NS 1,000 ML IV; +ROBISYP5 PO; +SUDA30TA PO; +TYLE325T5 PO; +ZANT300T9 PO; +[UNRECOGNIZED DRUG - OTHER] PO; +[UNRECOGNIZED DRUG - REMARK] PO
[2018-09-24 12:45] LABS: BILIRUBIN,DIRECT 0.1 MG/DL (0.0-0.2); BILIRUBIN,TOTAL 0.5 MG/DL (0.2-1.0)
[2018-09-24 12:46] LABS: ALBUMIN 3.8 GM/DL (3.2-5.2); TOTAL PROTEIN 6.9 GM/DL (6.4-8.2)
== END ==
LOC: M LAB 11:16
PROVIDERS: ATTEND Internal Medicine Gastroenterology
DX: R10.13 Epigastric pain (principal)

== ENCOUNTER → 2018-10-15 | Outpatient (CLI) | payer BC ==
[~2018-10-15] MED LIST changes: +DICY10CA13 PO
--- NOTE | 2018-10-15 11:21 | REP ---
Gastric emptying nuclear scintigraphy: History: Epigastric pain. Technique: 1.04 mCi of technetium-99m sulfur colloid was ingested in two scrambled eggs and 6 ounces of water and sequential anterior and posterior images are acquired for an 89-minute imaging observation period. Regions of interest are drawn around the stomach to plot gastric emptying. Scintigraphic findings: Expected T1/2 is 90 minutes. 80 % emptying is observed in this patient during the 89-minute imaging observation period, for a calculated T1/2 in this patient of 46 minutes. Impression: Normal gastric emptying. Electronically Signed by Thad Nolasco MD 10/15/2018 11:12 A
== END ==
LOC: M RAD 07:27
PROVIDERS: ATTEND Internal Medicine Gastroenterology
DX: R10.9 Unspecified abdominal pain (principal)
CPT/HCPCS: 78264; A9541

== ENCOUNTER 2018-10-21 12:27 | Day surgery (SDC) | payer BC ==
[~2018-10-21] VITALS: Ht 152.4 cm; Wt 92.9 kg
[2018-10-21] MEDS ORDERED: NS 1,000 ML IV ONE (13:45)
[2018-10-21] MEDS ORDERED: LIDOCAINE 2% INJ 100 MG/5 ML SDV (FOR ANES.) As Ordered ONE (14:44)
[2018-10-21] MEDS ORDERED: PROPOFOL 200 MG/20 ML VIAL As Ordered ONE (14:44)
[2018-10-21] MEDS ORDERED: fentaNYL 100 MCG/2 ML INJECTION (J3010) As Ordered ONE (14:45)
--- NOTE | 2018-10-21 15:11 | ROOR ---
Patient Name: Saumya Kim Procedure Date: 10/21/2018 2:50 PM Date of : 1970 Age: 48 Room: [facility] Gender: Female Note Status: Finalized Procedure: Upper GI endoscopy Indications: Epigastric abdominal pain (has hx EoE 2013--does not have dysphagia symptoms--this has resolved) Providers: David BHAKTA MD Referring MD: Eun Pizarro NP Requesting Provider: Medicines: Monitored Anesthesia Care Complications: No immediate complications. Procedure: Pre-Anesthesia Assessment: - The heart rate, respiratory rate, oxygen saturations, blood pressure, adequacy of pulmonary ventilation, and response to care were monitored throughout the procedure. The Endoscope was introduced through the mouth, and advanced to the second part of duodenum. The upper GI endoscopy was accomplished without difficulty. The patient tolerated the procedure well. Findings: Scattered mild inflammation was found in the gastric antrum. Biopsies were taken with a cold forceps for histology. The exam of the stomach was otherwise normal. The examined esophagus was normal. The examined duodenum was normal. Impression: - Mild scattered gastritis. Biopsied. - Normal esophagus. - Normal examined duodenum. Recommendation: - Reduce/avoid ibuprofen, naproxen, or other non-steroidal anti-inflammatory drugs. (- Tylenol is OK) - Observe patient's clinical course. - Telephone endoscopist for pathology results in 2 weeks. - Consider a trial on Amitriptyline 10 - 25 mg at bedtime for management of chronic abdominal pain. David Bhakta MD David BHAKTA MD 10/21/2018 3:10:36 PM This report has been signed electronically. Number of Addenda: 0 Note Initiated On: 10/21/2018 2:50 PM Estimated Blood Loss: Estimated blood loss: none.
[2018-10-21 15:36] VITALS: BP 138/77
== END 2018-10-21 15:44 | disposition home or self-care (01) ==
LOC: M OPP 12:27
PROVIDERS: ATTEND Internal Medicine Gastroenterology
DX: K29.70 Gastritis, unspecified, without bleeding (principal); R10.13 Epigastric pain
CPT/HCPCS: 43239; 88305; 88313; J3010

== ENCOUNTER → 2019-05-25 | Outpatient (CLI) | payer BC ==
[~2019-05-25] MED LIST changes: +HYDR-3715 PO; -NORCOTAB PO
[2019-05-25 13:45] LABS: ALBUMIN 3.6 GM/DL (3.2-5.2); ALT/SGPT 23 U/L (12-78); BILIRUBIN,TOTAL 0.7 MG/DL (0.2-1.0); BLOOD UREA NITROGEN 15 MG/DL (7-18); CALCIUM LEVEL 8.5 MG/DL (8.5-10.1); CARBON DIOXIDE LEVEL 30 MEQ/L (21-32); CHLORIDE LEVEL 106 MEQ/L (98-107); CHOLESTEROL LEVEL 253 MG/DL (<200); CHOLESTEROL RISK RATIO 3.202 (<5); GLOMERULAR FILTRATION RATE > 60.0 (>58); GLUCOSE, FASTING 94 MG/DL (70-100); HDL CHOLESTEROL 79 MG/DL (>40); LDL CHOLESTEROL 112 MG/DL (<100); NON-HDL-C 174 MG/DL; POTASSIUM SERUM 4.2 MEQ/L (3.5-5.1); SODIUM LEVEL 143 MEQ/L (136-145); TOTAL PROTEIN 6.8 GM/DL (6.4-8.2); TRIGLYCERIDES LEVEL 310 MG/DL (<150)
== END ==
LOC: M WUC 10:37
PROVIDERS: ATTEND Nurse Practitioner Family
DX: Z00.00 Encounter for general adult medical examination without abnormal findings (principal); E78.5 Hyperlipidemia, unspecified; F32.9 Major depressive disorder, single episode, unspecified

== ENCOUNTER → 2019-06-18 | Outpatient (CLI) | payer BC ==
--- NOTE | 2019-06-18 10:16 | REP ---
Clinical: "Lump " Technique: Real time tavares scale and color evaluation using linear high frequency and curved array transducers. Findings: The thyroid gland is essentially normal in contour, size, echogenicity, and shape. Right lobe measures 4.2 x 1.5 x 1.6 cm and includes 3 x 1 x 2 mm small cyst. Left lobe measures 3.2 x 1.1 x 1.0 cm and includes 2 x 1 x 2 mm in 2 x 2 x 2 mm small cysts. Superior and superficial to the thyroid gland are small presumed lymph nodes measuring up to 5 mm. Impression: Essentially normal thyroid examination. Small likely insignificant thyroid cysts measuring up to 3 mm. Electronically Signed by Mitchell Marques MD 06/18/2019 10:07 A
== END ==
LOC: M RAD 08:39
PROVIDERS: ATTEND Specialist
DX: K21.9 Gastro-esophageal reflux disease without esophagitis (principal)

== ENCOUNTER 2019-08-31 12:47 | Day surgery (SDC) | payer BC ==
[~2019-08-31] VITALS: Ht 152.4 cm; Wt 90.7 kg
[~2019-08-31 12:47] MED LIST changes: +NS 1,000 ML IV SCH; +OMEP40CA97 PO
[2019-08-31] MEDS ORDERED: fentaNYL 100 MCG/2 ML INJECTION (J3010) As Ordered ONE (13:33)
[2019-08-31] MEDS ORDERED: LIDOCAINE 2% INJ 100 MG/5 ML SDV (FOR ANES.) As Ordered ONE (13:33)
[2019-08-31] MEDS ORDERED: propofoL 200 MG/20 ML VIAL As Ordered ONE (13:33)
--- NOTE | 2019-08-31 14:48 | ROOR ---
Patient Name: Saumya Kim Procedure Date: 08/31/2019 2:29 PM Date of : 1970 Age: 49 Room: [facility] Gender: Female Note Status: Finalized Procedure: Upper GI endoscopy Indications: Dysphagia, Follow-up of eosinophilic esophagitis, Globus sensation Providers: David BHAKTA MD Referring MD: Lauren Swan, [facility] [place]: Medicines: Monitored Anesthesia Care Complications: No immediate complications. Procedure: Pre-Anesthesia Assessment: - The heart rate, respiratory rate, oxygen saturations, blood pressure, adequacy of pulmonary ventilation, and response to care were monitored throughout the procedure. The Endoscope was introduced through the mouth, and advanced to the second part of duodenum. The upper GI endoscopy was accomplished without difficulty. The patient tolerated the procedure well. Findings: The esophagus was normal. The stomach was normal. The examined duodenum was normal. No endoscopic abnormality was evident in the esophagus to explain the patient's complaint of dysphagia. This was biopsied with a cold forceps for evaluation of eosinophilic esophagitis. Impression: - Normal esophagus. - Normal stomach. - Normal examined duodenum. - No endoscopic esophageal abnormality to explain patient's dysphagia. Biopsied. Recommendation: - Continue present medications. - Telephone endoscopist for pathology results in 2 weeks. David Bhakta MD David BHAKTA MD 08/31/2019 2:47:41 PM Electronically signed by David BHAKTA MD Number of Addenda: 0 Note Initiated On: 08/31/2019 2:29 PM Estimated Blood Loss: Estimated blood loss: none.
[2019-08-31 15:10] VITALS: BP 134/92
== END 2019-08-31 15:18 | disposition home or self-care (01) ==
LOC: M OPP 12:47
PROVIDERS: ATTEND Internal Medicine Gastroenterology
DX: R13.10 Dysphagia, unspecified (principal); K20.0 Eosinophilic esophagitis; F45.8 Other somatoform disorders; R10.9 Unspecified abdominal pain; G47.30 Sleep apnea, unspecified; K21.9 Gastro-esophageal reflux disease without esophagitis; Z79.899 Other long term (current) drug therapy
CPT/HCPCS: 43239; 88305; J3010

== ENCOUNTER → 2020-01-29 | Outpatient (CLI) | payer BC ==
[~2020-01-29] MED LIST changes: -NS 1,000 ML IV SCH
--- NOTE | 2020-01-29 12:09 | REP ---
RIGHT FOOT, FOUR VIEWS: Four views, right foot performed. No acute fracture or dislocation is seen. There is moderate interior calcaneal spurring. There is mild narrowing of the talonavicular joint with dorsal navicular spurring. There is mild narrowing at the 1st metatarsophalangeal joint. IMPRESSION: Mild degenerative changes. No fracture or dislocation. Electronically Signed by Andrea Aviles MD 02/02/2020 06:29 P
== END ==
LOC: M ADAMS 11:17
PROVIDERS: ATTEND Physician Assistant
DX: M79.671 Pain in right foot (principal)